=== PATIENT | male | born 1970 | race Caucasian/White ===

== ENCOUNTER 2016-08-01 20:16 | Inpatient (IN) ==
[2016-08-01] MEDS ORDERED: VANCOMYCIN 1 GM/NS 1 GM/250 ML IVPB IV ONE (23:53)
[2016-08-01] MEDS ORDERED: ROCEPHIN 1 GM/NS 1 GM/50 ML IVPB IV ONE (23:53)
[2016-08-02 00:41] LABS: MANUAL DIFF NEEDED? NO
[2016-08-02 00:43] LABS: BASO% 0.4 % (0.0-0.8); EOS# 0.21 X1000 (0.0-0.7); EOS% 2.5 % (0.0-10.0); HEMATOCRIT 37.3 % (42.0-52.0); HEMOGLOBIN 12.1 g/dL (14.0-18.0); IMM GRAN# 0.02 X1000 (0.0-0.04); IMM GRAN% 0.2 % (0.0-0.5); LYMPH# 1.45 X1000 (1.2-3.4); LYMPH% 17.2 % (20.5-51.1); MCH 28.1 PG (27-31); MCHC 32.4 g/dL (33-37); MCV 86.7 FL (81-99); MONO# 0.69 X1000 (0.11-0.59); MONO% 8.2 % (1.7-9.3); NEUT% 71.5 % (42.2-75.2); PLT 213 X1000 (130-400)
[2016-08-02 00:56] LABS: AGAP 14; ALBUMIN 3.9 g/dL (3.5-5.0); ALKALINE PHOSPHATASE 113 U/L (32-122); BUN 14 mg/dL (8-22); CALCIUM 9.2 mg/dL (8.8-10.2); CHLORIDE 103 mmol/L (98-107); COSMO 286; GOT 17 U/L (10-34); GPT 16 U/L (10-44); POTASSIUM 3.6 mmol/L (3.5-5.1); SODIUM 143 mmol/L (136-145); TCO2 26 mmol/L (25-35); TOTAL BILIRUBIN 0.63 mg/dL (0.20-1.00); TOTAL PROTEIN 7.1 g/dL (6.3-8.3)
[2016-08-02] MEDS ORDERED: ZOFRAN IV PRN (06:08)
[2016-08-02] MEDS ORDERED: MOTRIN PO PRN (06:08)
[2016-08-02] MEDS ORDERED: VANCOMYCIN IV PER PHARMACY MISC SCH (07:30)
[2016-08-02] MEDS ORDERED: NS 1,000 ML IV SCH (07:30)
[2016-08-02 07:42] LABS: INR 1.12; PROTIME 11.8 Seconds (9.2-11.7); PTT 31.7 Seconds (22.0-36.0)
[2016-08-02] MEDS: CLINDAMYCIN 600 MG/NS 600 MG/50 ML IVPB IV SCH ×2 (08:52→18:40)
[2016-08-02] MEDS ORDERED: BACTROBAN OINTMENT TOP SCH (09:00)
[2016-08-02] MEDS: PROTONIX IV SCH (10:04)
[2016-08-02] MEDS: LOVENOX SUBQ SCH (10:05)
[2016-08-02] MEDS: VANCOMYCIN 2,000 MG in NS 500 ML IV SCH ×2 (10:08→21:58)
--- NOTE | 2016-08-02 11:33 | HISTORY AND PHYSICAL ---
DATE AND TIME: 08/02/2016 at 0400 hours. CHIEF COMPLAINT: Left lower extremity sores and swelling. HISTORY OF PRESENT ILLNESS: Mr. Lozano is a 45-year-old, male, who presented to the ER [facility] with complaints of increased pain in his left lower extremity, as well as swelling and sores. The patient initially was evaluated for this on 07/19/2016 at [facility]. He actually presented with complaints of itching to lower extremities and respiratory symptoms. He was diagnosed with upper respiratory infection, was given antibiotic Zithromax, a steroid pack and Vistaril. The patient states that since this time his upper respiratory infection has improved and has resolved, although his left lower extremity continued to have increased pain, increased erythema, swelling and now states that he is also having trouble ambulating. The patient states that his symptoms initially started approximately 3 or 4 weeks ago. He denies any insect bites or ant bites. He stated that he began having itching on bilateral lower extremities. The patient was scratching at these he states. He then states the sores developed; he reports that they started out almost like the appearance of a pimple with a little pustule on top. The patient does report that he did pop these and pick at these. He reports peeling the scabs off some of the sores. Since that time, the sores, erythema, pain and swelling have worsened. The patient denies any fever, body aches or chills. He is able to ambulate, although states this is painful and that he is limping at this time. He denies any headache, dizziness, lightheadedness , chest pain, shortness of breath, abdominal pain, nausea, vomiting, or diarrhea. Denies any dysuria or urinary frequency. He denies any numbness or tingling in the extremities. Patient also denies any hematochezia or melena. He denies any previous history of having a DVT in his upper or lower extremities or pulmonary embolism. Upon evaluation in the ER, patient was found to have a left lower extremity that was swollen with approximately 2+ pitting edema from mid calf down. There are multiple sores noted on bilateral lower extremities, although there are more present on his left lower extremity and these appear to be worse as well. Some of the sores are draining. A wound culture was collected in the ER. Patient did have an elevated D-dimer of 1.07. A left lower extremity venous Doppler was obtained, although findings were negative for any deep venous thrombosis. At this time, the patient will be admitted for further treatment and evaluation of his left lower extremity cellulitis. REVIEW OF SYSTEMS: A 12 point review of systems was conducted with the patient. All were negative, except for pertinent positives mentioned above in HPI. PAST MEDICAL HISTORY: Except for seasonal allergies, the patient denies any previous medical problems. SURGICAL HISTORY: The patient denies any previous surgeries. SOCIAL HISTORY: The patient denies any past or present tobacco, alcohol or illicit drug use. He reports that he does work for a [employer] in [place]. FAMILY HISTORY: He reports that his father has a history of diabetes mellitus, hypertension, and has had a gastric bypass surgery. Reports that his mother or siblings do not have any medical problems. ALLERGIES: Patient reports allergy to amoxicillin. HOME MEDICATIONS: The patient does not take any regular prescriptions, although as previously mentioned he did just recently take a Medrol dose pack, a Z-Lizandro and Vistaril that he was given in the ER on July 19. He also reports taking Claritin as needed for allergies. DIAGNOSTIC DATA: Laboratory results: White blood cell count 8.4, hemoglobin 12.1, hematocrit 37.3, platelet count is 213. D-dimer is 1.07. Sodium 143, potassium 3.6, chloride 103, bicarbonate 26, BUN 14, creatinine 1, GFR greater than 60. Glucose 112. Calcium 9.2. Liver function tests within normal limits. ProBNP is 21. Venous Doppler left lower extremity was obtained which was negative for any deep venous thrombosis. Pending diagnostic studies at this time are blood cultures, PT and PTT. PHYSICAL EXAMINATION: VITAL SIGNS: Temperature 97.8 degrees, heart rate 71, respirations 18, blood pressure 142/64. Oxygen saturation is 99% room air. GENERAL: Mr. Lozano is a pleasant 45-year-old, male, who is resting on the ER stretcher. He is in no acute distress. He was awake, alert, and able to answer all questions appropriately. HEENT: Head is atraumatic, normocephalic. Pupils are equal, round, react to light, were 3 mm bilaterally and brisk. Oral mucosa was moist. Oropharynx is clear. NECK: Supple. Trachea midline. CARDIOVASCULAR: Patient has normal S1, S2. No murmurs, gallops, rubs appreciated with a regular rate. Pulse is regular. PULMONARY: Patient has symmetrical chest expansion bilaterally. Lung sounds are clear to auscultation in bilateral full arvizu. ABDOMEN: Abdomen is soft, nontender, nondistended, although the patient does have a protuberant abdomen noted. Bowel sounds are present and all 4 quadrants were normoactive. EXTREMITIES: Patient has erythema noted from mid calf down on left lower extremity. Also on this extremity from mid calf down, he has 2+ pitting edema. There is warmth noted to this left lower extremity as well. There are multiple sores of various stages of healing and various sizes noted on his left lower extremity from approximately knee down. These have been reported by the patient to have drained at times. ER staff did obtain a wound culture. Pedal pulses in bilateral lower extremities were 3+ in the dorsalis pedis and posterior tibialis. Capillary refills less than 3. Patient does have a small area on the inner aspect of his right lower extremity just above his medial malleolus that is erythematous, although no swelling is noted to the extremity. There are some sores noted on this extremity as well. That had the same appearance as the one on his left lower extremity. Pulse, motor and sensory is intact in all extremities. Pedal pulses, as previously mentioned, are intact. INTEGUMENTARY: Other then sores previously mentioned above extremities exam, no other signs of sores or lesions present. Patient's skin color is pink, warm and dry. NEUROLOGICAL: Patient is alert, oriented to person, place, time, situation. Cranial nerves 2-12 are grossly intact. IMPRESSION: 1. Left lower extremity cellulitis. For this, we have placed orders for wound culture, as well as blood cultures. The patient will be given vancomycin intravenous, pharmacy to dose. We will also place him on clindamycin 600 mg intravenous every 8 hours. We have placed order for Bactroban ointment to be applied to sores on bilateral lower extremities. We have also placed a consult with the wound care nurse. We have ordered for his left lower extremity to be elevated. We will continue to follow. 2. Bilateral lower extremity wounds. As previously mentioned, we have ordered for a wound care nurse consult and have placed orders for Bactroban ointment to be applied twice a day, and we will continue to follow. 3. Lower extremity pain. We have ordered for the patient to receive Motrin 400 mg oral every 6 hours as needed, as well as Mosca 7.5 mg oral every 6 hours as needed for pain. 4. Deep vein thrombosis prophylaxis. Will be provided with Lovenox 40 mg subcutaneous every 24 hours. 5. Gastrointestinal prophylaxis provided with Protonix 40 mg intravenous every 24 hours. The patient placed on medical floor for telemetry. He will have vital signs every 8 hours. We will do strict intake and output. He will be on bed rest with bathroom privileges, and we have placed order for his left lower extremity to be elevated. He will be on a regular diet. We will repeat a CBC and BMP in the morning. Further orders/recommendations pending hospital course, diagnostic studies, and physician evaluation. Dictated by FRIEDA Owen for Gage Brown MD Pt seen and examined and plan was discussed with HAZARDOUS MATERIALS ANALYST. cc: Gage Brown MD MTDD
--- NOTE | 2016-08-02 19:36 | CONSULTATION ---
DATE OF CONSULTATION: 08/02/2016 REQUESTING PHYSICIAN: Dr. Cheung with hospitalist service. CONSULT CONCERNING: Lower extremity sores and swelling. HISTORY OF PRESENT ILLNESS: A 45-year-old male who presents to the emergency department with complaints of pain in his left leg. He had been initially seen at [place] on 07/19. At that time, he was diagnosed with upper respiratory infection but he continued to have increasing pain and swelling and redness in his lower extremities and difficulty walking. Said this started approximately 3-4 weeks ago. He said he had been noticing itching which he started scratching these lesions. He said the sores developed after that. He was evaluated in emergency department again and was admitted to the hospitalist service. He was started on antibiotics. He did have an ultrasound done after elevated D-dimer was found and the preliminary report is negative for deep venous thrombosis. He was admitted and I was asked to evaluate the patient for opinion. I did discuss this case with the wound care nurse. He cannot give any significant more detail about the at least area started besides potentially started like an ingrown hair. PAST MEDICAL HISTORY: Includes seasonal allergies. PAST SURGICAL HISTORY: None. FAMILY HISTORY: Diabetes, hypertension. ALLERGIES: Amoxicillin. HOME MEDICATIONS: Reviewed. Current medications of MAR reviewed. REVIEW OF SYSTEMS: Full 10 point review of systems obtained, negative except specified in HPI. PHYSICAL EXAMINATION: Vital Signs: Patient is currently afebrile. His vital signs have been stable. General: No acute distress. Alert, interactive male looks stated age. HEENT: Normocephalic, atraumatic. Pupils equal, round, reactive to light. Mucous membranes moist. Oropharynx benign. Neck: Supple. Trachea midline. Cardiovascular: Regular rate and rhythm. Lungs: Grossly clear. Abdomen: Soft, nondistended, nontender. Extremities : Multiple scaly lesions noted to bilateral lower extremities. There is edema noted to bilateral lower extremities. There is some warmth and mild erythema noted on the left side more significantly than right side. He does have palpable pulses to suggest perfusion in bilateral lower extremities. Neurologic: Grossly intact. Skin: As noted above. Vascular: All extremities perfused. LABORATORY: Reviewed. White blood cell count 8, hematocrit 37, platelet count 213,000. Remainder of labs reviewed. ASSESSMENT AND PLAN: A 45-year-old male with bilateral lower extremity erythema and lesions. Bilateral lower extremity erythema and lesions. At this time, left side seems to be worse although unclear etiology as the source of this. At this time given the appearance of it would recommend continued antibiotics and observation. He did have an ultrasound that showed no deep vein thrombosis. At this time may need to consider echocardiogram given the bilateral nature of these lesions although embolic disorder from cardiac vegetations likely low in the differential. At this time I have no surgical intervention planned on these wounds and would recommend again antibiotics and local wound care as needed. I will continue to follow with you. I appreciate the consult. cc: Teznin Porter MD [facility]
--- NOTE | 2016-08-02 22:17 | Extremity Venous Study ---
PROCEDURE NAME: Venous U/S Left Leg - 08/02/2016 REQUESTING PHYSICIAN: Dr. Sarwat Ordoñez METER READER CHIEF: Jose David. INDICATIONS: Swelling and elevated D-dimer. PROCEDURE: Left lower extremity venous duplex color-flow imaging. EQUIPMENT: Larotecid E9 ultrasound system with a 9 LD transducer. FINDINGS: Imaging of the left lower extremity venous systems were obtained in both sagittal and transverse planes. Doppler was used to image the left lower extremity venous system and comparison shots of the right common femoral vein were obtained in both sagittal and transverse planes. Doppler was used to evaluate veins for spontaneity, phasicity, respiratory excursion, and digital augmentation. RESULTS: Normal venous compression, normal venous flow. No obvious superficial or deep venous thrombosis noted. There is an incidentally noted lymph node noted in the left groin. INTERPRETATION: No obvious superficial or deep venous thrombosis noted in the left lower extremity venous system. There appears to be a lymph node noted in the left groin which I would recommend handling clinically. If indicated, further imaging. cc: Tenzin Porter MD
[2016-08-03] MEDS: CLINDAMYCIN 600 MG/NS 600 MG/50 ML IVPB IV SCH ×3 (04:33→22:23)
--- NOTE | 2016-08-03 05:43 | PROVIDER DOCUMENTATION ---
This chart was entered by Adryan Resendiz Scribe, acting as scribe for Sarwat Ordoñez MD. HPI-Rash/Wound/ReCheck - General Chief Complaint: Sores/Lesions Stated Complaint: RASH Time Seen by Provider: 08/01/16 23:41 Source: patient Allergies/Adverse Reactions: Allergies Allergy/AdvReac Type Severity Reaction Status Date / Time amoxicillin Allergy RASH Verified 07/19/16 05:47 Home Medications: Home Medication List Medication Instructions Recorded Confirmed Last Taken Type Azithromycin [Zithromax Z-Lizandro] 250 mg PO DIRECTED #1 pkg 07/19/16 08/02/16 Unknown Rx Hydroxyzine Pamoate [Vistaril] 25 mg PO TID #30 capsule 07/19/16 08/02/16 Unknown Rx Loratadine/Pse E.r. 24 Hr 1 tab PO DAILY 07/19/16 08/02/16 Unknown History [Claritin-D 24 Hr] Methylprednisolone [Medrol Dosepak] 4 mg PO DIRECTED #1 package 07/19/16 Unknown Rx - History of Present Illness-Dermatology Nature of Presenting Problem: Pt is a 45 yom who presents to ER with CC of bilateral lower extremity sores, more prominent on LLE. Pt reports that he was seen several weeks ago at [place] for same and his sores were starting to improve, but pt reports that this afternoon (after mowing his yard) his LLE became swollen/erythemous/and warm. On exam, pt has multiple sore on bilateral lower extremities, with swelling/erythema/mffr-zp-feh-touch on LLE (both proximal to ankles). LLE sores are draining yellow purulence. Location: reports: lower extremity (bilateral, proximal to ankles) Quality: reports: burning, itchy Severity: reports: severe Onset/Duration: reports: 4-6 hours ago Timing: reports: still present Context/Associated Symptoms: reports: change in skin texture, lesion, petechiae , rash, tingling. denies: insect bite/sting, tick bite, spider bite, unknown bite/sting, abscess, laceration, abrasion, bruising/hematoma, incised wound, stab wound, burn, blisters, edema, fever, flushing, headache, hives, jaundice, malaise, nasal congestion, numbness, pallor, paresthesia, sore throat, swelling/ mass/lumps, tender area Identifiable cause?: No Exposure: reports: unknown cause Locality of Occurance: Home Similar Symptoms Previously?: Yes Recently seen or treated by another doctor?: Yes Review of Systems - Adult - REVIEW OF SYSTEMS - ADULT Constitutional: denies: chills, fever, fatique, night sweats, weight gain, weight loss Eyes: reports: no symptoms reported Ears, Nose, Mouth & Throat: reports: no symptoms reported Cardiovascular: reports: no symptoms reported Respiratory: reports: no symptoms reported Gastrointestinal: reports: no symptoms reported Genitourinary: reports: no symptoms reported Musculoskeletal: denies: bone pain, back pain, frequent leg cramps, joint pain, joint swelling, muscle aches, muscle weakness, neck pain Integumentary: reports: itching, rash, skin sores/ulcer, skin thickening. denies: hives, hair loss, mole changes, nail changes Neurological: reports: no symptoms reported Psychiatric: reports: no symptoms reported Endocrine: reports: no symptoms reported Hematologic/Lymphatic: denies: blood clots, easy bruising, low blood count, lymphedema, prolonged bleeding, swollen lymph nodes, transfusions Allergic/Immunologic: denies: allergic reactions, allergic rhinitis, asthma, eczema, food allergy, frequent infections, hay fever, hives, positive PPD, urticaria All Other Systems: Reviewed and Negative Past History - Adult - PAST MEDICAL HISTORY-ADULT Review of Records: reports: Nursing Assessment Review, Medications Reviewed - IMMUNIZATION STATUS Childhood Immunizations: See Nurse Assessment Flu Vaccine: See Nurse Assessment - FAMILY HISTORY Family History: reviewed, not pertinent Physical Exam-General - PHYSICAL EXAM-ADULT Initial Vital Signs Reviewed: Yes - CONSTITUTIONAL General Appearance: appears well, alert, no apparent distress - EYES Eyes: PERRL/EOMI, pink conjunctivae, fundi clear, no AV nicking. negative: pale conjunctivae, photophobia, sclera injected, scleral icterus - HEAD, EARS, NOSE, MOUTH & THROAT HENMT: normocephalic/atraumatic, moist mucous membranes, normal ENT inspection, TMs normal, pharynx normal. negative: pharyngeal erythema, tonsillar exudate, TM abnormal - NECK Neck: non-tender, full range of motion, supple, normal inspection. negative: C- spine tenderness, limited range of motion, lymphadenopathy - RESPIRATORY Respiratory: chest non-tender, lungs clear, normal breath sounds, no pleuratic chest pain, no respiratory distress, no accessory muscle use. negative: respiratory distress, decreased breath sounds, accessory muscle use, wheezing - CARDIOVASCULAR Cardiovascular: normal peripheral pulses, regular rate, rhythm. negative: bradycardia, tachycardia, irregularly irregular - GASTROINTESTINAL (ABDOMEN) Abdominal Exam: normal bowel sounds, non tender, soft, no organomegaly, no pulsatile mass. negative: abnormal bowel sounds, distended, tenderness - MUSCULOSKELETAL Back Exam: normal inspection, no CVA tenderness, no vertebral tenderness. negative: CVA tenderness, decreased range of motion, ecchymosis, muscle spasm, swelling, vertebral tenderness Extremity: normal range of motion, non-tender, normal gait, normal inspection, no pedal edema, no calf tenderness, normal capillary refill, erythema, inflammation, swelling. negative: deformity, tenderness - SKIN Integumentary: warm/dry, erythema, rash, swelling, warm. negative: normal color , normal turgor, abrasion(s), diaphoresis, ecchymosis, laceration(s), pallor, tenderness - NEUROLOGIC Neurologic: child care nurse II-XII nml as tested, grossly normal, no motor/sensory deficits . negative: facial droop, focal weakness, motor weakness, sensory deficit - PSYCHIATRIC Psych/Mental Status: normal mood/affect, normal thought content, normal thought process, oriented x 3 Progress - PLAN OF CARE/RESULTS Progress/Plan/Lab Results: Orders Category Date Time Status Admit - [facility] Routine AdmDCTranf 08/02/16 03:22 Ordered Activity - Bed Rest with BRP ORDERED Care 08/02/16 03:22 Active Call Admitting on Arrival AT ADMISSION Care 08/02/16 03:22 Inactive Saline Loc DIRECTED Care 08/02/16 03:22 Completed Vital Signs Order ARRIVAL TO ROOM Care 08/02/16 03:22 Inactive Regular Diet Diet 08/02/16 03:22 Active BNP [PRO B-NATRIURETIC PEPTIDE] Stat Lab 08/02/16 00:26 Completed CBC WITH ELECTRONIC DIFF [HEME] Stat Lab 08/02/16 00:26 Completed CMP [COMPREHENSIVE METABOLIC PANEL] [CHEM] Stat Lab 08/02/16 00:26 Completed Ddimer [D-DIMER] [CHEM] Stat Lab 08/02/16 00:26 Completed WOUND CULTURE INC GRAM STAIN [RM] Routine Lab 08/01/16 00:00 Results CefTRIAXONE 1 GM/NS [Rocephin 1 gm/Ns] Med 08/01/16 23:53 Discontinued 1 gm in 50 ml IV NOW Vancomycin 1 gm/Ns Med 08/01/16 23:53 Discontinued 1 gm in 250 ml IV NOW Venous U/S Left Leg Stat Ther 08/02/16 01:58 Draft Transfer/Admit Order [TRANSFER] Routine Transfer 08/02/16 03:23 Completed Result Diagrams: 08/02/16 00:26 08/02/16 00:26 - ULTRASOUND (By Radiology) 1 US Study: Lower Ext Impression: Normal (no DVT) Departure - Departure Time of Disposition Decision: 03:21 DIAGNOSIS: Left leg cellulitis Disposition: ADMITTED INPATIENT 09 Certified Medical Emergency: Emergent Condition: Fair - Critical Care Note This patient required my direct personal management.: Yes This chart was documented by the indicated scribe, (Adryan Resendiz, Arben) and accurately reflects the services I performed and decisions made by me, Sarwat Peralta MD, as attested by the provider's signature.
--- NOTE | 2016-08-03 06:21 | PROGRESS NOTE ---
DATE: 08/03/2016 SUBJECTIVE: No major issues reported by the nursing staff. Patient reports no major issues. OBJECTIVE: Vital Signs: Patient is currently afebrile. His vital signs are stable. General: No acute distress. HEENT: Normocephalic, atraumatic. Pupils equal, round, react to light. Mucous membranes moist. Oropharynx benign. Neck: Supple. Trachea midline. Cardiovascular: Regular rate and rhythm. Lungs: Grossly clear. Abdomen: Soft, nontender, nondistended. Extremities: Essentially unchanged. Still with some mild erythema and cellulitis noted to the left lower extremity. There are some scaly lesions and scabs noted to his bilateral lower extremities, more prominent on the left side though. Essentially unchanged from yesterday. LABORATORY: Currently pending. ASSESSMENT/PLAN: A 45-year-old male with cellulitis in the bilateral lower extremities. Cellulitis bilateral lower extremities. At this time, would continue antibiotics as done by the hospitalist service and monitor his wounds. No surgical intervention planned at this time, we will continue to follow with you peripherally. cc: Tenzin Porter MD
[2016-08-03 06:34] LABS: MANUAL DIFF NEEDED? NO
[2016-08-03 06:46] LABS: BASO% 0.2 % (0.0-0.8); EOS# 0.13 X1000 (0.0-0.7); EOS% 2.4 % (0.0-10.0); HEMATOCRIT 33.2 % (42.0-52.0); HEMOGLOBIN 10.6 g/dL (14.0-18.0); IMM GRAN# 0.02 X1000 (0.0-0.04); IMM GRAN% 0.4 % (0.0-0.5); LYMPH# 0.99 X1000 (1.2-3.4); MCH 27.9 PG (27-31); MCHC 31.9 g/dL (33-37); MCV 87.4 FL (81-99); MONO% 10.9 % (1.7-9.3); MPV 10.1 FL (7.4-10.4); NEUT% 68.1 % (42.2-75.2); PLT 179 X1000 (130-400)
[2016-08-03 07:05] LABS: AGAP 12; BUN 9 mg/dL (8-22); CALCIUM 8.2 mg/dL (8.8-10.2); CHLORIDE 106 mmol/L (98-107); COSMO 281; POTASSIUM 3.7 mmol/L (3.5-5.1); SODIUM 142 mmol/L (136-145); TCO2 24 mmol/L (25-35)
[2016-08-03] MEDS: LOVENOX SUBQ SCH (09:40)
[2016-08-03] MEDS: VANCOMYCIN 2,000 MG in NS 500 ML IV SCH ×2 (09:40→22:47)
[2016-08-03] MEDS: SODIUM CHLORIDE 0.9% INJ SCH (09:40)
[2016-08-03] MEDS: PROTONIX IV SCH (09:40)
[2016-08-03] MEDS: NORCO-7.5 PO PRN ×2 (09:40→15:09)
--- NOTE | 2016-08-03 14:28 | PROGRESS NOTE ---
DATE: 08/03/2016 SUBJECTIVE: The patient is sitting up in the bed with no complaints. OBJECTIVE: Vital Signs: Temperature is 98.5 degrees, heart rate 65, respiration 17, blood pressure 139/65, O2 is 95% on room air. General: Mr. Lozano is sitting up in bed, in no acute distress. HEENT: Atraumatic, normocephalic. LISA. Neck: Supple. Trachea midline. CV: No murmurs, gallops, or rubs. Having regular rate and rhythm. Lungs: Grossly clear in all lung arvizu. Abdomen: Soft, nontender, nondistended. Positive bowel sounds 4 quadrants. Extremities: Bilateral extremities with lesions, mild erythema, and cellulitis in the left lower extremity. Lesions on bilateral legs are scabby and scaly in appearance, more swelling on the left than the right. Bilateral pedal pulses are present. Neurologic: The patient is alert and oriented x4. No focal deficits noted. DIAGNOSTIC DATA: White count 5, hemoglobin 10, hematocrit 33, platelet count of 179,000. Chemistry: Sodium 142, potassium 3.7, BUN 9, creatinine 0.9. Blood glucose was 91. Wound culture from the left leg is growing gram-positive cocci. Blood cultures are still pending. Echocardiogram has been ordered. ASSESSMENT AND PLAN: Bilateral lower extremity wounds with a left lower extremity cellulitis. A blood culture on the left wound is growing out gram positive cocci. We will continue with vancomycin as well as clindamycin and pain management. Dr. Porter has assessed the patient. They do not feel there is any need for surgical intervention at this time, and would like to continue with antibiotics and watching. They did suggest an echocardiogram. We have ordered one to be done in the a.m. to rule out anything embolic in nature due to it being in the bilateral extremities. DR. Hammad Sheridan with ID has also been consulted to assist Further recommendations to follow physician evaluation and diagnostic data. Dictated by FRIEDA Arevalo for Kian Cheung MD cc: Kian Cheung MD [facility]
[2016-08-04] MEDS: NORCO-7.5 PO PRN (06:06)
[2016-08-04] MEDS: CLINDAMYCIN 600 MG/NS 600 MG/50 ML IVPB IV SCH ×3 (06:07→21:43)
[2016-08-04 07:09] LABS: HEMATOCRIT 32.7 % (42.0-52.0); HEMOGLOBIN 10.3 g/dL (14.0-18.0); MCH 27.9 PG (27-31); MCHC 31.5 g/dL (33-37); MCV 88.6 FL (81-99); RBC 3.69 XMIL (4.7-6.1)
[2016-08-04 07:42] LABS: AGAP 10; BUN 12 mg/dL (8-22); CALCIUM 8.4 mg/dL (8.8-10.2); CHLORIDE 106 mmol/L (98-107); COSMO 282; POTASSIUM 3.6 mmol/L (3.5-5.1); SODIUM 142 mmol/L (136-145); TCO2 26 mmol/L (25-35)
[2016-08-04] MEDS: PROTONIX IV SCH (09:23)
[2016-08-04] MEDS: LOVENOX SUBQ SCH (09:23)
[2016-08-04] MEDS: SODIUM CHLORIDE 0.9% INJ SCH (09:23)
[2016-08-04] MEDS: VANCOMYCIN 2,000 MG in NS 500 ML IV SCH ×2 (11:24→22:24)
--- NOTE | 2016-08-04 14:55 | ECHO REPORT ---
ORDER DATE: 08/04/2016 INDICATION: Gram positive cocci, edema, rule out embolic event. FINDINGS: 1. Right atrium is mildly enlarged at 4.3 cm. 2. Mild tricuspid regurgitation. RV systolic pressure 41. 3. Normal RV size and systolic function. 4. Trace pulmonic insufficiency. 5. Normal left atrial size at 3.8 cm. 6. There is no evidence mitral valve prolapse. Trace mitral regurgitation. 7. Normal LV size, end-diastolic dimension of 5.5. Normal wall thicknesses with a posterior and interventricular septal wall thickness 1.1 cm each. There is normal LV systolic function with a calculated EF of 65%. Definity contrast injection was used to help delineate the endocardial borders. There does not appear to be any segmental wall motion abnormalities. 8. Aortic valve appears to open well. No evidence of stenosis or insufficiency. 9. Aortic root appears somewhat dilated at 4.2 cm. 10. There is no pericardial effusion identified. 11. There is no clear evidence of valvular vegetation adherent to any of the valves visualized on this study. If the clinical suspicion for endocarditis is high would make a consideration for a transesophageal echo. cc: Johnathan Cleary MD
--- NOTE | 2016-08-04 15:03 | PROGRESS NOTE ---
DATE: 08/04/2016 SUBJECTIVE: Mr. Lozano's rash seems to be drying up and making some progress. He feels comfortable, eating well. OBJECTIVE: Vital signs: Temperature 98.4 degrees, pulse 67, respirations 20, blood pressure 100/55. Eyes: Pupils are equal and round. Lungs: Clear in all lung arvizu. Cardiovascular exam: Regular rhythm and rate without murmur or S3. Abdomen: Soft. Skin: Warm and dry. : Urine output 2 L. LABS: Unremarkable. White count 5610, hematocrit 32, platelet count 172,000. Sodium 142, potassium 3.6, chloride 106, BUN 12, creatinine 0.9, calcium 8.4. ASSESSMENT AND PLAN: Bilateral lower extremity wounds, lower extremity cellulitis. Wound is growing gram-positive cocci. He is various different lesions that suggest possible embolic or ischemic source, so I think we need to look at the heart. We may need to look at the aorta to, including consideration of fat emboli or atherosclerotic plaque. No surgical intervention indicated at this point, clinically improving. Note he has had extremity venous studies and there is no deep venous thrombosis. Await echocardiogram. I have reviewed orders. Continue vancomycin. cc: Kian Cheung MD
[2016-08-05] MEDS: NORCO-7.5 PO PRN (02:04)
[2016-08-05] MEDS: SODIUM CHLORIDE 0.9% INJ SCH (06:30)
[2016-08-05] MEDS: CLINDAMYCIN 600 MG/NS 600 MG/50 ML IVPB IV SCH ×3 (06:30→22:32)
[2016-08-05] MEDS: PROTONIX IV SCH (06:30)
[2016-08-05] MEDS: LOVENOX SUBQ SCH ×2 (07:55→08:04)
[2016-08-05] MEDS: VANCOMYCIN 2,000 MG in NS 500 ML IV SCH ×2 (10:13→23:26)
--- NOTE | 2016-08-05 15:49 | PROGRESS NOTE ---
DATE: 08/05/2016 SUBJECTIVE: Mr. Lozano is feeling better. He can tell the rash is healing up in his lower extremities. Multiple aged areas of necrosis on both lower extremities. He remains afebrile. OBJECTIVE: Vital signs: Temperature 97.8 degrees, pulse 76, respirations 20, blood pressure 122/63. HEENT: Pupils were equal, round. Lungs: Are clear in all lung arvizu. Cardiovascular: Regular rhythm and rate without murmur or S3. Abdomen: Soft. Skin: Is warm and dry. LAB: No recent lab. Some lab from yesterday hematocrit stable at 32. Electrolytes unremarkable. Echocardiogram with Doppler done yesterday read by Dr. Cleary, right atrium mildly enlarged at 4.3 cm, mild tricuspid regurgitation, right ventricular systolic pressure 41, #3 normal RV size and systolic function, #4 trace pulmonic insufficiency, #5 normal left atrial size at 3.8 cm, normal left ventricular dimension, calculated ejection fraction 65%. No evidence of aortic stenosis or insufficiency. There is no clear evidence of valvular vegetation adherent to any of the valves visualized in the study and pretty good study by report. PLAN: Going to continue present antibiotics. Does clinically improve. Patient is on clindamycin and vancomycin. There is also possibility of an aortic embolic event. We may have to examine aorta but present time continue present medication. cc: Kian Cheung MD
[2016-08-06] MEDS: CLINDAMYCIN 600 MG/NS 600 MG/50 ML IVPB IV SCH ×3 (06:34→21:48)
[2016-08-06] MEDS: SODIUM CHLORIDE 0.9% INJ SCH (06:40)
[2016-08-06] MEDS: PROTONIX IV SCH (06:40)
[2016-08-06] MEDS: VANCOMYCIN 2,000 MG in NS 500 ML IV SCH ×2 (11:37→22:39)
[2016-08-06] MEDS: LOVENOX SUBQ SCH (11:38)
--- NOTE | 2016-08-06 15:18 | PROGRESS NOTE ---
DATE: 08/06/2016 SUBJECTIVE: Mr. Lozano is feeling better. Feet are feeling better. Less pain. Less discomfort. OBJECTIVE: Vital Signs: Temperature 97.8 degrees, pulse 70, respirations 18, blood pressure 135/75. HEENT: Pupils are equal and round. Neck: CVP less than 6 cm. Lungs: Clear in all lung arvizu. Cardiovascular: Regular rhythm and rate, without murmur or S3. Abdomen: Soft. Skin: Warm and dry. LABORATORIES: White count 5610, hematocrit 32, platelet count 172,008. Reviewed laboratories from 08/04/2016. Electrolytes look good. ASSESSMENT AND PLAN: Continue present antibiotics, clindamycin and vancomycin. He is showing steady improvement. I do not see any embolic source. Echocardiogram done on 08/04/2016 unremarkable. Appears to have good left ventricular function and good ejection fraction. cc: Kian Cheung MD
[2016-08-07] MEDS: CLINDAMYCIN 600 MG/NS 600 MG/50 ML IVPB IV SCH ×3 (05:29→22:18)
[2016-08-07] MEDS: LOVENOX SUBQ SCH (09:31)
[2016-08-07] MEDS: PROTONIX IV SCH (09:31)
[2016-08-07] MEDS: SODIUM CHLORIDE 0.9% INJ SCH (09:31)
[2016-08-07] MEDS: VANCOMYCIN 2,000 MG in NS 500 ML IV SCH ×2 (11:31→22:51)
--- NOTE | 2016-08-07 14:42 | DISCHARGE SUMMARY ---
ADMISSION DATE: 08/02/2016 DISCHARGE DATE: HOSPITAL COURSE: A 45-year-old came with lower extremity sores and swelling presented to the emergency room with complaints of increased pain left lower extremity as well as swelling and sores. Patient is evaluated on 07/19/2016 at [place], he actually did present with complaints of itching lower extremity, respiratory symptoms, he was diagnosed with upper respiratory tract infection, given Zithromax and steroid pack and Vistaril. Patient states at that time his upper respiratory infection has improved and had resolved although his left extremity continue have increased pain, increased erythema, swelling and states he had trouble ambulating. Patient states his symptoms initially started about 3 or 4 weeks ago. He denied any insect bites or any trauma to his leg that he knows about. States he has been itching bilateral lower extremities patient scratching at these, sores developed and reports that started almost like appearance of a pimple and then a pustule and then various different sizes. He did apparently pop a couple these or prick them. He reports peeling scabs off some of the sores. Since that time the sores, erythema, pain and swelling have worsened. Patient denied any fever, body aches or chills, he was able a ambulate although this is painful. He was admitted to the hospital, started empirically on vancomycin, cultures grew out Enterobacter as well as Staph which was sensitive to oxacillin, clinically improved. We did an echocardiogram, did not find any embolic source. Hemodynamically remains stable. Remained in sinus rhythm on monitor and felt he could go home. Anticipating go home on 08/08/2016. 1. I am going to discharge him with Levaquin 500 mg a day for another 7 days p.o. He has remained afebrile. Follow up with his primary care. 2. Lower extremity pain related to the cellulitis improved. 3. He was put on prophylaxis for deep venous thrombosis. DISCHARGE MEDICATIONS: Anticipated we will give him Levaquin 500 mg daily and really I think that will be his sole medication. cc: Kian Cheung MD
--- NOTE | 2016-08-07 15:48 | PROGRESS NOTE ---
DATE: 08/07/2016 SUBJECTIVE: She was feeling much better. 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 OBJECTIVE: Vital signs: Temperature 97.7 degrees, pulse 59, respirations 20, blood pressure 120/66. Lungs: Are clear in all lung arvizu. Cardiovascular: Regular rhythm and rate without murmur, S3. Abdomen: Soft. Good urine output. LAB: White count, CBC and chemistry reviewed from the looked good. ASSESSMENT/PLAN: Cellulitis diffuse symmetrical purpura with some purulent cellulitis. Did not find a source of embolic source. Echocardiogram done 08/04/2016. He seems to be healing well. If he has more trouble with this I think we got to look at his aorta closer but hemodynamically stable and doing well. Plan to probably let him go home tomorrow. Present antibiotics he is on vancomycin. His wound grew out Staphylococcus epididymis and and they are sensitive to oxacillin so probably will put him on oxacillin, put him on Keflex probably for another week of treatment. He did have Enterobacter as well, Enterobacter cloaca. cc: Kian Cheung MD
[2016-08-08] MEDS: CLINDAMYCIN 600 MG/NS 600 MG/50 ML IVPB IV SCH (05:42)
[2016-08-08 08:17] VITALS: BP 143/65
[2016-08-08] MEDS: PROTONIX IV SCH (09:26)
[2016-08-08] MEDS: LOVENOX SUBQ SCH (09:26)
[2016-08-08] MEDS: VANCOMYCIN 2,000 MG in NS 500 ML IV SCH (10:59)
== END 2016-08-08 16:12 | disposition home or self-care (01) ==
LOC: ED 20:16 → EDIPHOLD 08-02 05:38 → SUATTDRO 08-02 05:38 → 3N 08-02 11:17
PROVIDERS: ATTEND Emergency Medicine